=== PATIENT | male | born 1940 | race Caucasian/White ===

== ENCOUNTER 2016-06-18 11:00 | Outpatient (RCR) | payer MEDICARE, BC ==
[~2016-06-18 11:00] MED LIST: ARICEPT10 MG PO; ASPIRIN 81M81 MG/TA2 PO; CEPHALEXIN500 M1 PO; DESYREL 50MG50 MG PO; MAXZIDE-25MG TA1 TAB PO; NAMENDA 10MG TA10 MG PO; NAMENDA XR 28MG PO; NAMENDA5 MG PO; PRINIVIL20 MG PO; VITAMIN D1000 IU PO; WELCHOL 625MG625 MG PO; WELLBUTRIN 75MG75 MG PO
== END 2016-06-24 | disposition home or self-care (01) ==
LOC: WSST
DX: F03.90 Unspecified dementia, unspecified severity, without behavioral disturbance, psychotic disturbance, mood disturbance, and anxiety (principal)
CPT/HCPCS: G9168-GN; G9169-GN

== ENCOUNTER 2016-08-20 10:45 | Outpatient (RCR) | payer MEDICARE, BC | END 2016-08-22 10:33 | disposition home or self-care (01) | LOC: WSST 10:45 | DX: F03.90 Unspecified dementia, unspecified severity, without behavioral disturbance, psychotic disturbance, mood disturbance, and anxiety (principal) | CPT/HCPCS: G9169-GN; G9170-GN ==

== ENCOUNTER 2016-08-26 15:30 | Outpatient (RCR) | payer MEDICARE, BC | END 2016-08-27 11:09 | disposition still patient (30) | LOC: MKS.ESL.PT 15:30 | DX: M72.2 Plantar fascial fibromatosis (principal) | CPT/HCPCS: G8978-GP; G8979-GP; G8980-GP ==

== ENCOUNTER 2017-06-24 15:30 | Outpatient (RCR) | payer MEDICARE, BC | END 2017-06-28 | disposition home or self-care (01) | LOC: WSST | DX: R41.3 Other amnesia (principal); G30.9 Alzheimer's disease, unspecified; F02.80 Dementia in other diseases classified elsewhere, unspecified severity, without behavioral disturbance, psychotic disturbance, mood disturbance, and anxiety; F05 Delirium due to known physiological condition | CPT/HCPCS: G9168-GN; G9169-GN ==

== ENCOUNTER 2017-08-12 12:30 | Outpatient (RCR) | payer MEDICARE, BC | END 2017-08-20 14:00 | disposition home or self-care (01) | LOC: WSST 12:30 | DX: G30.8 Other Alzheimer's disease (principal); F02.80 Dementia in other diseases classified elsewhere, unspecified severity, without behavioral disturbance, psychotic disturbance, mood disturbance, and anxiety; R41.3 Other amnesia; R48.9 Unspecified symbolic dysfunctions | CPT/HCPCS: G9168-GN; G9169-GN; G9170-GN ==

== ENCOUNTER 2018-01-27 10:30 | Outpatient (RCR) | payer MEDICARE, BC | END 2018-02-15 | disposition home or self-care (01) | LOC: WSST | DX: F02.80 Dementia in other diseases classified elsewhere, unspecified severity, without behavioral disturbance, psychotic disturbance, mood disturbance, and anxiety (principal) | CPT/HCPCS: G9168-GN; G9169-GN ==

== ENCOUNTER 2018-06-10 10:15 | Outpatient (RCR) | payer MEDICARE, BC | END 2018-06-15 | disposition home or self-care (01) | LOC: WSST | DX: R48.9 Unspecified symbolic dysfunctions (principal); F02.80 Dementia in other diseases classified elsewhere, unspecified severity, without behavioral disturbance, psychotic disturbance, mood disturbance, and anxiety | CPT/HCPCS: G9168-GN; G9169-GN ==

== ENCOUNTER 2018-07-29 10:15 | Outpatient (RCR) | payer MEDICARE, BC ==
[2018-09-05] MEDS ORDERED: FISH OIL 500 M1 EAC1 PO (13:56)
[2018-09-05] MEDS ORDERED: FLOMAX 0.40.4 MG/CAP PO (13:57)
== END 2018-09-15 | disposition home or self-care (01) ==
LOC: WSST
DX: R43.9 Unspecified disturbances of smell and taste (principal); R41.3 Other amnesia; F02.80 Dementia in other diseases classified elsewhere, unspecified severity, without behavioral disturbance, psychotic disturbance, mood disturbance, and anxiety

== ENCOUNTER 2018-08-26 10:00 | Outpatient (RCR) | payer MEDICARE, BC ==
[2018-09-05] MEDS ORDERED: FISH OIL 500 M1 EAC1 PO (13:56)
[2018-09-05] MEDS ORDERED: FLOMAX 0.40.4 MG/CAP PO (13:57)
== END 2018-09-22 08:10 | disposition home or self-care (01) ==
LOC: MKS.ESL.PT 10:00
DX: M51.36 Other intervertebral disc degeneration, lumbar region (principal)

== ENCOUNTER → 2018-09-05 | Emergency (ER) | payer MEDICARE, BC ==
[~2018-09-05] VITALS: Ht 182.9 cm; Wt 79.5 kg
[~2018-09-05] MED LIST changes: +FISH OIL 500 M1 EAC1 PO; +FLOMAX 0.40.4 MG/CAP PO
[2018-09-05 12:43] VITALS: TEMP 99.2
[2018-09-05 13:44] LABS: COLLECTION METHOD CLEAN CATCH
[2018-09-05 13:53] LABS: MUCOUS Present /lpf; PH 5 (5-8); SQUAMOUS EPITHELIAL 0-2 /hpf; URINE APPEARANCE Clear; URINE BACTERIA None Seen /hpf; URINE BILIRUBIN Negative (NEGATIVE); URINE BLOOD Negative (NEGATIVE); URINE COLOR Yellow; URINE GLUCOSE Negative (NEGATIVE); URINE KETONE Negative (NEGATIVE); URINE LEUKOCYTE ESTERASE Negative (NEGATIVE); URINE NITRATE Negative (NEGATIVE); URINE PROTEIN(semi-quant) Negative (NEGATIVE); URINE RBC 0-2 /hpf; URINE UROBILINOGEN Negative (NEGATIVE)
[2018-09-05 14:01] LABS: BASO % 0.3 % (0.0-2.0); EOS % 0.4 % (0-4.0); GRAN # 4.8 (1.4-6.5); LYMPH # 1.8 (1.2-3.4); LYMPH % 23.7 % (20.0-51.0); MEAN CELL VOLUME 99 fl (80.0-100.0); MEAN CORPUSCULAR HEMOGLOBIN 34 pg (27.0-31.0); MEAN CORPUSCULAR HGB CONC 34 g/dl (33.0-37.0); MEAN PLATELET VOLUME 10.7 fl (7.4-10.4); MONO % 13.3 % (1.7-9.3); PLATELET COUNT 138 K/mm3 (130-400); RED BLOOD COUNT 3.56 M/mm3 (4.20-5.60); REDCELL DISTRIBUTION WIDTH-CV 12.6 % (11.5-14.5)
[2018-09-05 14:03] LABS: HEMATOCRIT 35.1 % (42.0-52.0)
[2018-09-05 14:10] LABS: ALANINE AMINOTRANSFERASE 8 U/L (21-72); ALBUMIN 3.8 gm/dL (3.5-5.0); ALKALINE PHOSPHATASE 177 U/L (50-136); ANION GAP 10 mmol/L (7-16); AST,SGOT 23 U/L (15-37); BILIRUBIN,TOTAL 0.9 mg/dL (0.0-1.0); BLOOD UREA NITROGEN 25 mg/dL (9-20); CALCIUM 8.8 mg/dL (8.4-10.2); CARBON DIOXIDE 24 mmol/L (22-30); CHLORIDE 104 mmol/L (98-107); CREATININE, serum 1.27 (0.66-1.25); GLUCOSE 90 mg/dL (74-106); POTASSIUM 4.1 mmol/L (3.4-5.0); SODIUM 139 mmol/L (137-145); TOTAL PROTEIN 7.4 gm/dL (6.4-8.2)
[2018-09-05 14:19] LABS: PROTHROMBIN TIME 11.8 SECONDS (9.7-12.8)
[2018-09-05 14:24] LABS: TROPONIN-I < 0.012 ng/mL (0.000-0.035)
[2018-09-05 14:40] LABS: TSH w REFLEX 0.598 uIU/mL (0.465-4.680)
[2018-09-05 15:19] VITALS: BP 139/66; PULSE 77
== END ==
LOC: COL.ER 12:37
PROVIDERS: Emergency Medicine
DX: S06.5X0A Traumatic subdural hemorrhage without loss of consciousness, initial encounter (principal); I10 Essential (primary) hypertension; W19.XXXA Unspecified fall, initial encounter; Y92.009 Unspecified place in unspecified non-institutional (private) residence as the place of occurrence of the external cause
CPT/HCPCS: J1953; J7030; J7050

== ENCOUNTER → 2018-10-26 | Outpatient (CLI) | payer MEDICARE, BC | LOC: COL.RAD 13:48 | DX: S06.5X9A Traumatic subdural hemorrhage with loss of consciousness of unspecified duration, initial encounter (principal); G30.1 Alzheimer's disease with late onset; F02.80 Dementia in other diseases classified elsewhere, unspecified severity, without behavioral disturbance, psychotic disturbance, mood disturbance, and anxiety; R55 Syncope and collapse; I67.82 Cerebral ischemia; G31.9 Degenerative disease of nervous system, unspecified; Z98.890 Other specified postprocedural states ==

== ENCOUNTER → 2018-12-29 | Outpatient (RCR) | payer MEDICARE, BC | END | disposition home or self-care (01) | LOC: WSST → MKS.ESL.PT 09-30 10:17 → WSST 10-21 09:45 → MKS.ESL.PT 10-28 11:15 → WSST 11-02 13:30 → MKS.ESL.PT 11-08 14:45 → WSST 11-24 10:45 | DX: S06.5X9D Traumatic subdural hemorrhage with loss of consciousness of unspecified duration, subsequent encounter (principal); F02.80 Dementia in other diseases classified elsewhere, unspecified severity, without behavioral disturbance, psychotic disturbance, mood disturbance, and anxiety; M54.5 Low back pain ==

== ENCOUNTER 2019-04-06 10:30 | Outpatient (RCR) | payer MEDICARE, BC | END 2019-04-26 | disposition still patient (30) | LOC: WSST | DX: F02.80 Dementia in other diseases classified elsewhere, unspecified severity, without behavioral disturbance, psychotic disturbance, mood disturbance, and anxiety (principal); R48.9 Unspecified symbolic dysfunctions ==

== ENCOUNTER 2019-05-25 10:30 | Outpatient (RCR) | payer MEDICARE, BC | END 2019-08-17 | disposition home or self-care (01) | LOC: WSST | DX: R48.9 Unspecified symbolic dysfunctions (principal); F03.90 Unspecified dementia, unspecified severity, without behavioral disturbance, psychotic disturbance, mood disturbance, and anxiety ==

== ENCOUNTER 2021-01-09 12:09 | Day surgery (SDC) | payer MEDICARE, BC ==
[~2021-01-09] VITALS: Ht 182.9 cm; Wt 81.8 kg
[2021-01-09] VITALS (10 sets, daily range): BP systolic 142–169; BP diastolic 58–79; PULSE 49–68; TEMP 96.2–98.8
[2021-01-09 13:05] LABS: HEMATOCRIT 39.2 % (42.0-52.0); HEMOGLOBIN 13.2 g/dl (13.5-18.0)
[2021-01-09 13:06] LABS: INR 1.1 (0.8-3.0); PROTHROMBIN TIME 11.9 SECONDS (9.7-12.8)
[2021-01-09] MEDS ORDERED: FLORAJEN A20 Billion (13:06)
[2021-01-09] MEDS ORDERED: TURMERIC500 MG PO (13:06)
[2021-01-09 13:19] LABS: CALCIUM 9.4 mg/dL (8.4-10.2); CREATININE, serum 1.12 mg/dL (0.72-1.25); POTASSIUM 4.4 mmol/L (3.5-4.5)
--- NOTE | 2021-01-09 17:26 | NUR ---
Pt. back from OR, status post TURP procedure. Pt. is shivering, temp is low at this time. Warm blankets applied. Frequent vital signs using dynamap unable to obtain frequent blood pressures because pt. is shivering. Manual BP obtained, BP WNL. Will attempt to warm the patient w/ a warm pad. Pt. oriented to his room. Supportive Ann at Bedside. 3-way aly cath in place. Urine color is pink. Plan to switch pt. over to IVF to left arm. Call light and belongings in reach. Bed alarm on, call light in reach.
--- NOTE | 2021-01-09 17:43 | NUR ---
Correction from previous note: Pt. is a new admit from the OR. Frequent vital signs are cycling through successfully using the dynamap. Warming pad placed on patient to increase low temp. Pt. reports feeling more comfortable.
--- NOTE | 2021-01-09 21:00 | NUR ---
PT IN BED. HAS CBI INFUSING AT MODERATE RATE, URINE DK PINK, NO CLOTS NOTED. IS ALERT AND ORIENTED. TAKES HS MEDS AND BUENO CARES PROVIDED. HAS OWN CPAP AT BEDSIDE. IVF TO LEFT WRIST, NO REDNESS OR SWELLING NOTED. BED ALARM ON FOR SAFETY.
--- NOTE | 2021-01-09 23:30 | NUR ---
PT REPORTS BILATERAL FEET ITCHING, HOME LOTION APPLIED.
[2021-01-10 02:43] VITALS: BP 142/64; PULSE 63; TEMP 97.7
--- NOTE | 2021-01-10 03:58 | NUR ---
INT IVF A THIS TIME.
--- NOTE | 2021-01-10 08:00 | NUR ---
PATIENT IS ALERT BUT SL CONFUSED. PATIENT HAS HX OF DEMENTIA. VSS. DENIES PAIN. BUENO TO DD WITH CBI INFUSING AT MOD RATE. URINE IS REDDISH WITH A FEW SMALL TISSUE CLOTS NOTED. HEAD TO TOE ASSESSMENT COMPLETE. NO C/O N/V. LEFT WRIST IV TO INT. AM MEDS GIVEN. NO OTHER NEEDS AT THIS TIME. CALL LIGHT IN REACH.
[2021-01-10 08:55] VITALS: BP 148/62; PULSE 57; TEMP 98.2
--- NOTE | 2021-01-10 10:29 | NUR ---
early childhood worker met with patient to discuss discharge plan. Patient's Ann ([phone]) at bedside. Ann provided much of the patient's history due to the patient not having his hearing aids in. Ann states that they live at [facility] and that the patient is fully independent. Reports that he does not use a cane or a walker to assist with mobility. Does use a CPAP machine at night and they go through [facility] for supplies. PCP is Dr. Nielson and they utilize [facility] pharmacy for medications with no cost difficulty. reports that they do have a [facility] established and that herself and there daughter Hannah([phone]) are his agents. reports that they will return back to [facility] and that she will provide transportation. Discharge plan: Back to [facility]
--- NOTE | 2021-01-10 10:36 | NUR ---
Initial visit; Patient thanked Information Technology Manager for looking in on him and offering God's blessings.
[2021-01-10 11:18] VITALS: BP 142/67; PULSE 52; TEMP 98.1
[2021-01-10 15:36] VITALS: BP 140/57; PULSE 59; TEMP 97.8
[2021-01-10 19:42] VITALS: BP 139/63; PULSE 75; TEMP 98.4
--- NOTE | 2021-01-10 20:20 | NUR ---
Pt. sitting up in bed. Pt. moved to 326 d/t risk for falling. Pt. is alert and confused. INT to lt. wrist patent. Pt. denies pain. CBI running to three way catheter. Urine is light pink at this time. Call light within reach, bed alarm on.
[2021-01-10 23:08] VITALS: BP 139/64; PULSE 61; TEMP 97.7
[2021-01-11 03:43] VITALS: BP 140/59; PULSE 69; TEMP 98.5
--- NOTE | 2021-01-11 07:55 | NUR ---
Physician ordered prime and pull approx 250ml of CBI instilled into bladder, aly removed with balloon intact. Pt voided soon after. Bright pink urine.
[2021-01-11 08:05] VITALS: BP 143/62; PULSE 54; TEMP 98.6
--- NOTE | 2021-01-11 10:14 | NUR ---
Pt resting in bed. Pt stated that he pulled out IV from left wrist because it was bothering him.
[2021-01-11 13:06] VITALS: BP 141/67; PULSE 59; TEMP 98.7
--- NOTE | 2021-01-11 16:42 | NUR ---
PATIENT DISCHARGING HOME VIA WC TO PERSONAL VEHICLE WITH . GAVE DISCHARGE INSTRUCTIONS TO PATIENT IS CONFUSED AT BASELINE. DISCUSSED UROLOGY F/U APT AND ANSWERED QUESTIONS/CONCERNS. PATIENT IS DRESSED, PACKED AND DISCHARGED HOME
== END 2021-01-11 16:44 | disposition home or self-care (01) ==
LOC: SDCO 12:09 → SURG 16:54 → SDCO 01-11 16:44
PROVIDERS: Nurse Anesthetist, Certified Registered
DX: N40.1 Benign prostatic hyperplasia with lower urinary tract symptoms (principal); N13.8 Other obstructive and reflux uropathy; R39.12 Poor urinary stream; N39.43 Post-void dribbling; R31.9 Hematuria, unspecified; I10 Essential (primary) hypertension; E78.2 Mixed hyperlipidemia; E29.1 Testicular hypofunction; G47.33 Obstructive sleep apnea (adult) (pediatric); G30.9 Alzheimer's disease, unspecified; F02.80 Dementia in other diseases classified elsewhere, unspecified severity, without behavioral disturbance, psychotic disturbance, mood disturbance, and anxiety; Z79.899 Other long term (current) drug therapy; Z79.890 Hormone replacement therapy
CPT/HCPCS: OP; J0690; J2704; J3480; J7120

== ENCOUNTER → 2021-07-17 | Outpatient (REF) ==
[~2021-07-17] MED LIST changes: +FLORAJEN A20 Billion; +TURMERIC500 MG PO
[2021-07-17 09:34] LABS: BASO % 0.4 % (0.0-2.0); EOS # 0.1 K/mm3 (0.0-0.7); EOS % 2.2 % (0.0-4.0); GRAN # 2.7 K/mm3 (1.4-6.5); GRAN % 54.5 % (42.2-75.2); HEMOGLOBIN 12.4 g/dl (13.5-18.0); LYMPH # 1.7 K/mm3 (1.2-3.4); LYMPH % 33.6 % (20.0-51.0); MEAN CELL VOLUME 101 fl (80.0-100.0); MEAN CORPUSCULAR HEMOGLOBIN 34 pg (27-31); MEAN CORPUSCULAR HGB CONC 34 g/dl (33.0-37.0); MEAN PLATELET VOLUME 11.3 fl (7.4-10.4); MONO # 0.5 K/mm3 (0.1-0.6); MONO % 9.1 % (1.7-9.3); PLATELET COUNT 143 K/mm3 (130-400); RED BLOOD COUNT 3.67 M/mm3 (4.20-5.60); REDCELL DISTRIBUTION WIDTH-CV 13.6 % (11.5-14.5)
[2021-07-17 09:41] LABS: HEMATOCRIT 36.9 % (42.0-52.0)
[2021-07-17 10:01] LABS: ALBUMIN 3.4 gm/dL (3.4-4.8); BILIRUBIN,TOTAL 0.7 mg/dL (0.2-1.2); CALCIUM 8.2 mg/dL (8.4-10.2); CREATININE, serum 1.14 mg/dL (0.72-1.25); POTASSIUM 4.3 mmol/L (3.5-4.5); TOTAL PROTEIN 6.6 gm/dL (6.2-8.1)
== END ==
LOC: ZCOL.LAB 09:29
PROVIDERS: Internal Medicine
DX: K76.9 Liver disease, unspecified (principal); I10 Essential (primary) hypertension; D69.6 Thrombocytopenia, unspecified

== ENCOUNTER → 2022-04-28 | Outpatient (CLI) | payer MEDICARE, BC | LOC: COL.RAD 14:31 | DX: G30.1 Alzheimer's disease with late onset (principal); F02.80 Dementia in other diseases classified elsewhere, unspecified severity, without behavioral disturbance, psychotic disturbance, mood disturbance, and anxiety; I67.82 Cerebral ischemia ==

== ENCOUNTER 2023-03-11 08:47 | Emergency (ER) | payer MEDICARE, BC ==
[~2023-03-11] VITALS: Ht 182.9 cm; Wt 79.1 kg
[2023-03-11 08:57] VITALS: TEMP 97.8
[2023-03-11 14:27] VITALS: BP 113/73; PULSE 52
== END 2023-03-11 12:09 | disposition home or self-care (01) ==
LOC: COL.ER 08:47
DX: S01.111A Laceration without foreign body of right eyelid and periocular area, initial encounter (principal); S05.11XA Contusion of eyeball and orbital tissues, right eye, initial encounter; W01.0XXA Fall on same level from slipping, tripping and stumbling without subsequent striking against object, initial encounter

== ENCOUNTER 2023-06-03 16:26 | Emergency (ER) | payer MEDICARE, BC ==
[~2023-06-03] VITALS: Ht 182.9 cm; Wt 79.5 kg
[2023-06-03 16:31] VITALS: TEMP 99.4
[2023-06-03 17:02] LABS: COLLECTION METHOD CLEAN CATCH
[2023-06-03 17:16] LABS: URINE APPEARANCE CLEAR (CLEAR/HAZY); URINE BLOOD NEGATIVE (NEGATIVE); URINE COLOR YELLOW (YELLOW); URINE GLUCOSE NEGATIVE (NEGATIVE); URINE KETONE NEGATIVE (NEGATIVE); URINE NITRATE NEGATIVE (NEGATIVE); URINE PROTEIN(semi-quant) 1+ (NEGATIVE); URINE UROBILINOGEN 0.2 E.U/dL (0.2-1.0)
[2023-06-03 18:09] LABS: BASO % 0.4 % (0.0-2.0); EOS % 0.8 % (0.0-4.0); GRAN # 2.3 K/mm3 (1.4-6.5); GRAN % 48.4 % (42.2-75.2); HEMATOCRIT 41.4 % (42.0-52.0); LYMPH # 1.6 K/mm3 (1.2-3.4); LYMPH % 32.8 % (20.0-51.0); MEAN CELL VOLUME 100 fl (80.0-100.0); MEAN CORPUSCULAR HEMOGLOBIN 34 pg (27-31); MEAN CORPUSCULAR HGB CONC 34 g/dl (33.0-37.0); MEAN PLATELET VOLUME 12.4 fl (7.4-10.4); MONO # 0.8 K/mm3 (0.1-0.6); MONO % 17.2 % (1.7-9.3); PLATELET COUNT 94 K/mm3 (130-400); RED BLOOD COUNT 4.14 M/mm3 (4.20-5.60); REDCELL DISTRIBUTION WIDTH-CV 13.1 % (11.5-14.5)
[2023-06-03 18:10] LABS: INR 1.1 (0.8-3.0); PROTHROMBIN TIME 11.4 SECONDS (9.7-12.8)
[2023-06-03 18:21] LABS: ALBUMIN 3.5 gm/dL (3.4-4.8); BILIRUBIN,TOTAL 0.5 mg/dL (0.2-1.2); C-REACTIVE PROTEIN 4.86 mg/dL (0.00-0.50); CALCIUM 8.9 mg/dL (8.4-10.2); CREATININE, serum 1.16 mg/dL (0.72-1.25); POTASSIUM 4.4 mmol/L (3.5-4.5); TOTAL PROTEIN 7.1 gm/dL (6.2-8.1)
[2023-06-03 18:27] LABS: TROPONIN-I 0.011 ng/mL (0.00-0.033)
[2023-06-03] MEDS ORDERED: cefTRIAXone 1 G in Water For Injection,Sterile 10 ML IV ONE (19:00)
[2023-06-03] MEDS ORDERED: DOXYCYCLINE 10100 MG PO (19:07)
[2023-06-03] MEDS ORDERED: Doxycycline Monohydrate 100 MG CAP PO ONE (19:15)
[2023-06-03 19:51] VITALS: BP 162/86; PULSE 70
== END 2023-06-03 19:58 | disposition home or self-care (01) ==
LOC: COL.ER 16:26
PROVIDERS: Nurse Practitioner
DX: J18.9 Pneumonia, unspecified organism (principal)